=== PATIENT | male | born 1975 | race Caucasian/White ===

== ENCOUNTER 2020-10-03 16:07 | Emergency (ER) | payer SELFPAY ==
[~2020-10-03] VITALS: Ht 167.6 cm; Wt 77.2 kg
[2020-10-03 16:15] VITALS: Ht 167.6 cm; Wt 77.2 kg
[2020-10-03 16:58] VITALS: BP 139/89
== END 2020-10-03 16:58 | disposition home or self-care (01) ==
LOC: ED 16:07
DX: M25.511 Pain in right shoulder (principal); Z88.0 Allergy status to penicillin

== ENCOUNTER 2020-11-13 10:20 | Emergency (ER) | payer OTHER ==
[~2020-11-13] VITALS: Ht 167.6 cm; Wt 75.3 kg
[2020-11-13 10:34] VITALS: BP 149/88; Ht 167.6 cm; Wt 75.3 kg
== END 2020-11-13 10:51 | disposition home or self-care (01) ==
LOC: ED 10:20
DX: R09.89 Other specified symptoms and signs involving the circulatory and respiratory systems (principal); M25.519 Pain in unspecified shoulder; Z20.828 Contact with and (suspected) exposure to other viral communicable diseases
CPT/HCPCS: U0003